=== PATIENT | male | born 1995 | race Two or more races ===

== ENCOUNTER 2024-09-03 14:43 | Emergency (ER) | payer SELFPAY ==
[2024-09-03] MEDS: Amoxicillin/Clavulanate K 875-125 MG Tab PO ONE (15:26)
[2024-09-03] MEDS: Lidocaine 2% Viscous Solution 15 ML UD PO ONE (15:27)
[2024-09-03] MEDS: Benzocaine 20% Topical Spray UD MUCMEM ONE (15:27)
== END 2024-09-03 15:35 | disposition home or self-care (01) ==
LOC: MW.ED 14:43
DX: K04.7 Periapical abscess without sinus (principal); F17.210 Nicotine dependence, cigarettes, uncomplicated; Z75.8 Other problems related to medical facilities and other health care; Z79.899 Other long term (current) drug therapy
CPT/HCPCS: 99282; A9270